=== PATIENT | male | born 1955 | race Caucasian/White ===

== ENCOUNTER 2022-11-26 16:32 | Emergency (ER) | payer OTHER ==
[2022-11-26 16:45] VITALS: BP 150/80; PULSE 69; RESP 20; TEMP 98.5; BMI 31.7
[2022-11-26] MEDS ORDERED: SODIUM CHLORIDE 1,000 ML IV STA (18:04)
[2022-11-26 18:41] LABS: URINE APPEARANCE CLEAR; URINE BILIRUBIN NEGATIVE (NEGATIVE); URINE COLOR YELLOW; URINE GLUCOSE (UA) 3+ (NEGATIVE); URINE KETONE TRACE (NEGATIVE); URINE LEUK ESTERASE NEGATIVE (NEGATIVE); URINE NITRITE NEGATIVE (NEGATIVE); URINE PROTEIN NEGATIVE (NEGATIVE)
[2022-11-26 18:42] LABS: BASO % 0.8 % (0-2.0); HEMATOCRIT 42.9 % (35.4-49); HEMOGLOBIN 14.6 GM/dL (11.7-16.9); LYMPH % 44.1 % (8-40); MCHC 33.9 g/dl (32.0-35.9); MEAN CELL VOLUME 85.4 fl (80-96); MEAN PLT VOLUME 8.4 fl (7.5-11.1); NEUT % 44.1 % (42.8-82.8); PLATELET COUNT 296 10^3/uL (134-434); RBC 5.02 M/mm3 (4.00-5.60); RDW 12.3 % (11.9-15.9); WHITE BLOOD COUNT 6.2 K/mm3 (4.0-10.0)
[2022-11-26 19:01] LABS: BLOOD UREA NITROGEN 22.8 mg/dL (7-18); CALCIUM 9.4 mg/dL (8.5-10.1)
[2022-11-26 19:05] LABS: CREATININE 1.2 mg/dL (0.55-1.3)
[2022-11-26 19:06] LABS: BILIRUBIN,TOTAL 0.4 mg/dL (0.2-1); TOT PROT 7.8 g/dl (6.4-8.2)
== END 2022-11-26 20:11 | disposition home or self-care (01) ==
LOC: JER 16:32
PROC: 3E0337Z Introduction of Electrolytic and Water Balance Substance into Peripheral Vein, Percutaneous Approach (ICD-10-PCS; principal; 2022-11-26)
DX: E11.65 Type 2 diabetes mellitus with hyperglycemia (principal)
CPT/HCPCS: 0241U-QW; 36415; 71046-TC-FY; 80053; 81003; 82010; 82962; 85025; 87086; 99284-25